=== PATIENT | female | born 1945 | race Hispanic/Latino ===

== ENCOUNTER → 2017-11-17 | Outpatient (CLI) | payer OTHER | END | disposition home or self-care (01) | LOC: SHCH 12:35 → EDUNIT# 13:00 | PROVIDERS: ATTEND Internal Medicine Cardiovascular Disease | DX: I87.2 Venous insufficiency (chronic) (peripheral) (principal) | CPT/HCPCS: 93970 ==

== ENCOUNTER 2022-08-23 08:37 | Emergency (ER) | payer OTHER, MEDICARE ==
[~2022-08-23] VITALS: Ht 144.8 cm; Wt 70.3 kg
[2022-08-23] MEDS ORDERED: CLINDAMYCIN 150 MG CAP PO ONE (09:00)
[2022-08-23] MEDS ORDERED: CLIN-141 PO (09:01)
[2022-08-23 09:13] VITALS: BP 174/75
== END 2022-08-23 09:18 | disposition home or self-care (01) ==
LOC: EDH 08:37
DX: L02.212 Cutaneous abscess of back [any part, except buttock and flank] (principal); E11.9 Type 2 diabetes mellitus without complications; E78.00 Pure hypercholesterolemia, unspecified; I10 Essential (primary) hypertension; Z88.0 Allergy status to penicillin; Z90.49 Acquired absence of other specified parts of digestive tract; Z90.710 Acquired absence of both cervix and uterus; Z98.890 Other specified postprocedural states; W57.XXXA Bitten or stung by nonvenomous insect and other nonvenomous arthropods, initial encounter; Y93.89 Activity, other specified; Y92.89 Other specified places as the place of occurrence of the external cause; Y99.8 Other external cause status